=== PATIENT | male | born 2000 | race Caucasian/White ===

== ENCOUNTER 2021-01-15 23:50 | Inpatient (IN) ==
[2021-01-16 00:40] LABS: Basophils # 0.1 K/mcL (0.0-0.2); Basophils % 0.7 %; Eosinophils # 0.1 K/mcL (0.0-0.6); Eosinophils % 0.8 %; Hematocrit 45.5 % (37.5-50.1); Hemoglobin 15.7 g/dL (12.9-16.9); Immature Granulocytes % 0.4 % (0-4); Lymphocytes # 3.4 K/mcL (0.6-4.6); Lymphocytes % 23.7 %; Mean Corpuscular HGB Conc 34.5 g/dL (31.6-35.5); Mean Corpuscular Hemoglobin 30.3 pg (28.0-33.3); Mean Corpuscular Volume 87.8 fL (83.0-100.0); Monocytes # 0.8 K/mcL (0.0-1.3); Monocytes % 5.8 %; Neutrophils # 9.9 K/mcL (1.6-8.9); Platelet Count 280 K/mcL (140-400); Red Blood Count 5.18 M/mcL (4.19-5.50); Red Cell Distribution Width 12.1 % (11.5-14.5); Segmented Neutrophils % 68.6 %; White Blood Count 14.4 K/mcL (4.3-11.1)
[2021-01-16 00:47] LABS: Bilirubin,Urine Negative (Negative); Blood,Urine Negative (Negative); Clarity,Urine Clear (Clear); Color,Urine Yellow (Yellow); Glucose,Urine (UA) Normal (Normal); Ketones,Urine Negative (Negative); Leukocyte Esterase,Urine Negative (Negative); Nitrite,Urine Negative (Negative); Protein,Urine Trace mg/dL (Neg-Trace); Urobilinogen,Urine Normal (Normal)
[2021-01-16 00:57] LABS: Amphetamine Screen,Urine Negative ng/mL (Cutoff=1000); Barbiturate Screen,Urine Negative ng/mL (Cutoff=200); Benzodiazepines Screen,Urine Negative ng/mL (Cutoff=200); Cannabinoid Screen,Urine Negative ng/mL (Cutoff = 50); Cocaine Screen,Urine Negative ng/mL (Cutoff= 300); Opiate Screen,Urine Negative ng/mL (Cutoff=300); Phencyclidine Screen,Urine Negative ng/mL (Cutoff=25)
[2021-01-16 01:08] LABS: Acetaminophen < 10 mcg/mL (10-20); BUN/Creatinine Ratio 9 (6-26); Blood Urea Nitrogen 7 mg/dL (6-20); Calcium 9.2 mg/dL (8.6-10.3); Carbon Dioxide 26 mEq/L (23-29); Chloride 103 mEq/L (98-107); Chol/HDL Ratio 2.7 (0-4.9); Cholesterol 129 mg/dL (< 200); Ethanol < 10 mg/dL (Less than 10); Glucose 96 mg/dL (70-105); HDL Cholesterol 47 mg/dL (40-59); LDL Cholesterol,Calculated 69 mg/dL (< 100); Osmolality,Calculated 286 (280-300); Potassium 3.1 mEq/L (3.5-5.1); Salicylate < 2.5 mg/dL (15.0-30.0); Sodium 139 mEq/L (136-145); Triglycerides 65 mg/dL (< 150); eGFR For African Americans > 60; eGFR For Non-African Americans > 60
[2021-01-16 01:38] LABS: Estimated Average Glucose 105 mg/dl; Hemoglobin A1C 5.3 %
[2021-01-16] MEDS ORDERED: haloperidoL 5 MG TABLET PO PRN (04:50)
[2021-01-16] MEDS ORDERED: Haloperidol Lactate 5 MG/ML VIAL IM PRN (04:50)
[2021-01-16] MEDS ORDERED: traZODone 50 MG TABLET PO PRN (04:50)
[2021-01-16] MEDS ORDERED: *HR* LORazepam 2 MG/ML VIAL IM PRN (04:50)
[2021-01-16] MEDS ORDERED: *HR* LORazepam 1 MG TABLET PO PRN (04:50)
[2021-01-16] MEDS ORDERED: hydrOXYzine pamoate 25 MG CAPSULE PO PRN (04:50)
[2021-01-16] MEDS ORDERED: Acetaminophen 325 MG TABLET PO PRN (04:50)
[2021-01-17 08:44] VITALS: BP 104/64; PULSE 63; TEMP 97.4; O2SAT 98
== END 2021-01-17 13:25 | disposition home or self-care (01) | DRG 880 ==
LOC: EMEROOARM 23:50 → 1ANU 01-16 04:48
PROVIDERS: ADMIT Psychiatry & Neurology Psychiatry; ATTEND Psychiatry & Neurology Psychiatry